=== PATIENT | male | born 1930 | race Caucasian/White ===

== ENCOUNTER 2016-06-21 20:23 | Inpatient (IN) | payer OTHER ==
[~2016-06-21] VITALS: Ht 165.1 cm; Wt 81.6 kg
[2016-06-21 21:46] LABS: CALCIUM 9.9 mg/dL (8.5-10.1); CHLORIDE SERUM 99 mmol/L (98-107); CREATININE SERUM 1.2 mg/dL (0.7-1.3); GLUCOSE SERUM 238 mg/dL (74-106); POTASSIUM SERUM 4.1 mmol/L (3.5-5.1); SODIUM SERUM 138 mmol/L (136-145)
[2016-06-21 21:51] LABS: ALBUMIN 4.8 g/dL (3.4-5.0); ALKALINE PHOSPHATASE 121 U/L (46-116); ALT/SGPT 29 U/L (16-63); AMYLASE 80 U/L (25-115); AST/SGOT 18 U/L (15-37); LIPASE 106 IU/L (73-393)
[2016-06-21 22:04] LABS: BASOPHIL % 0.8 % (0-2); PLATELET COUNT 235 x10^3mcL (130-400); RED CELL DISTRIBUTION WIDTH 14.7 % (11.5-14.5)
[2016-06-21 23:34] LABS: UA SPECIFIC GRAVITY 1.025 (1.005-1.035); microscopic required? YES; urine erythrocyte 1+ (NEGATIVE)
[2016-06-22] VITALS (10 sets, daily range): BP systolic 135–188; BP diastolic 56–90
[2016-06-22 01:15] LABS: T3 TOTAL 0.84 ng/mL
[2016-06-22 01:19] LABS: MAGNESIUM 2.1 mg/dL (1.8-2.4); PHOSPHOROUS 3.5 mg/dL (2.5-4.9)
[2016-06-22 01:20] LABS: CHOLESTEROL/HDL RATIO 4.3
[2016-06-22 01:30] LABS: AMPHETAMINE QUAL UR NONE DETECTED (NEG <=1000)
[2016-06-22 02:46] LABS: FREE T4 0.95 ng/dL (0.76-1.46); FREE THYROXINE INDEX 2.1 ug/dL (1.4-4.5); T4(THYROXINE) 6.9 ug/dL (4.7-13.3)
[2016-06-22] MEDS ORDERED: TAMSULOSIN HYD0.4 M1 PO (18:03)
[2016-06-22] MEDS ORDERED: ESCITALOPRAM10 M1 PO (18:05)
[2016-06-22] MEDS ORDERED: TRAZODONE50 M1 PO (18:05)
[2016-06-22] MEDS ORDERED: LOSARTAN POTASS50 M1 PO (18:06)
[2016-06-22] MEDS ORDERED: TIMOPTIC OCUMET10 ML OU (18:08)
[2016-06-22] MEDS ORDERED: LATANOPROST2.5 ML OU (18:10)
[2016-06-22] MEDS ORDERED: EPZICOM1 TAB (18:11)
[2016-06-23 06:06] VITALS: BP 155/77
[2016-06-23 06:48] LABS: CALCIUM 8.3 mg/dL (8.5-10.1); CARBON DIOXIDE 27.3 mmol/L (21-32); CHLORIDE SERUM 105 mmol/L (98-107); CREATININE SERUM 1.1 mg/dL (0.7-1.3); GLUCOSE SERUM 114 mg/dL (74-106); MAGNESIUM 1.9 mg/dL (1.8-2.4); PHOSPHOROUS 3.3 mg/dL (2.5-4.9); POTASSIUM SERUM 4.2 mmol/L (3.5-5.1); SODIUM SERUM 140 mmol/L (136-145)
[2016-06-23 06:54] LABS: BASOPHIL % 1.5 % (0-2); PLATELET COUNT 200 x10^3mcL (130-400); RED CELL DISTRIBUTION WIDTH 13.9 % (11.5-14.5)
[2016-06-23 09:31] VITALS: BP 154/63
[2016-06-23 09:57] VITALS: BP 149/72
[2016-06-23 14:02] VITALS: BP 152/78
[2016-06-23] MEDS ORDERED: LAC PO (15:13)
[2016-06-23] MEDS ORDERED: BICARSIM80 M1 PO (15:14)
[2016-06-23] MEDS ORDERED: MAGNESIUM OXID400 MG PO (15:16)
[2016-06-23 15:36] VITALS: BP 152/78
== END 2016-06-23 16:05 | disposition home or self-care (01) | DRG 388 ==
LOC: ED 20:23 → DU 23:51 → MU 06-23 06:06
PROVIDERS: Emergency Medicine; ADMIT Family Medicine
DX: K56.60 Unspecified intestinal obstruction (principal); N17.0 Acute kidney failure with tubular necrosis; I42.9 Cardiomyopathy, unspecified; E11.65 Type 2 diabetes mellitus with hyperglycemia; E11.51 Type 2 diabetes mellitus with diabetic peripheral angiopathy without gangrene; I10 Essential (primary) hypertension; E78.5 Hyperlipidemia, unspecified; R31.9 Hematuria, unspecified; M19.012 Primary osteoarthritis, left shoulder; M19.011 Primary osteoarthritis, right shoulder; M47.894 Other spondylosis, thoracic region; I34.0 Nonrheumatic mitral (valve) insufficiency; I36.1 Nonrheumatic tricuspid (valve) insufficiency; Z68.30 Body mass index [BMI] 30.0-30.9, adult; Z79.84 Long term (current) use of oral hypoglycemic drugs; Z85.038 Personal history of other malignant neoplasm of large intestine
CPT/HCPCS: 80307; 82962; 84439; J0295; J0360; J1170; J2405; J3490; J7030; Q0092; Q9967